=== PATIENT | female | born 1950 | race Caucasian/White ===

== ENCOUNTER → 2020-08-26 09:45 | Outpatient (BNVA) | payer MEDICARE, OTHER, SELFPAY | PROVIDERS: Family Provider Nurse Practitioner; PCP Nurse Practitioner; Visit Provider Nurse Practitioner | DX: Z00.00 Encounter for general adult medical examination without abnormal findings (principal); E04.9 Nontoxic goiter, unspecified; Z13.6 Encounter for screening for cardiovascular disorders; Z78.0 Asymptomatic menopausal state | CPT/HCPCS: 80053; 80061; 84443; 85025 ==

== ENCOUNTER 2020-10-28 10:46 | Outpatient (CLI) | payer MEDICARE, OTHER, SELFPAY ==
--- NOTE | 2020-10-28 11:00 | US_ITS ---
WS: [id number] ULTRASOUND THYROID TECHNIQUE: Ultrasound of the thyroid. CLINICAL INFORMATION: E04.9 - Nontoxic goiter, unspecified COMPARISON: None. FINDINGS: Thyroid: Right and left thyroid lobes are normal in size with slightly heterogeneous echotexture. Sma ll complex and cystic bilateral thyroid nodules Right thyroid lobe: 4.7 cm x 1.0 cm x 1.4 cm Left thyroid lobe: 3.3 cm x 1.3 cm x 1.1 cm. Isthmus: 0.2 mm. Cervical lymphadenopathy: None. US/US thyroid [id number] IMPRESSION: 1. Bilateral complex thyroid nodules the largest in the right measuring 1.1 x 0.8 x 0.5 cm 2. Largest nodule in the left is cystic measuring 0.7 x 0.3 x 0.9 cm 3. Recommend 12 month follow-up.
== END 2020-10-28 10:47 | disposition home or self-care (01) ==
LOC: US 10:48
PROVIDERS: PCP Nurse Practitioner; Visit Provider Nurse Practitioner
DX: E04.9 Nontoxic goiter, unspecified (principal); E04.2 Nontoxic multinodular goiter
CPT/HCPCS: 76536

== ENCOUNTER 2020-10-28 13:14 | Outpatient (CLI) | payer MEDICARE, OTHER, SELFPAY ==
--- NOTE | 2020-10-28 13:30 | MM_ITS ---
WS: [id number] BILATERAL DIGITAL SCREENING MAMMOGRAPHY WITH CAD CLINICAL INFORMATION: Z12.39 - Encounter for other screening for malignant neoplasm of breast HISTORY: Screening mammogram. No current complaints. COMPARISON: TECHNIQUE: Bilateral CC and MLO views. FINDINGS: The breasts are composed of heterogeneous fibroglandular density tissue, which can limit the detectio n of small underlying mass lesions. No suspicious mass, asymmetry, calcifications, or architectural d istortion. No evidence of malignancy. MM/[place] [id number] IMPRESSION: BI-RADS: 1-Negative FOLLOW UP: 1 Year Follow-up Recommend return to annual screening mammography.
--- NOTE | 2020-10-28 13:56 | XR_ITS ---
WS: [id number] DEXA (DUAL ENERGY X-RAY ABSORPTIOMETRY) Bone mineral density was performed using a [employer] machine. HISTORY: Z78.0 - Asymptomatic menopausal state COMPARISON: None available. Lumbar spine BMD (L1-L4): 1.188 g/cm2 T score: 0.1 Z score: 1.8 Total hip BMD: Left: 0.929 g/cm2. T score: -0.6 Z score: 0.9 Right: 0.894 g/cm2. T score: -0.9 Z score: 0.6 10 year probability of a major osteoporotic fracture is 8%. Moderate LEFT convex curvature lumbar spine. XR/XR DEXA axial skeleton* [id number] IMPRESSION: NORMAL BONE MINERAL DENSITY based upon the WHO classification for females.
== END 2020-10-28 13:15 | disposition home or self-care (01) ==
PROVIDERS: PCP Nurse Practitioner; Visit Provider Nurse Practitioner
DX: Z12.31 Encounter for screening mammogram for malignant neoplasm of breast (principal); Z78.0 Asymptomatic menopausal state
CPT/HCPCS: 77067; 77080

== ENCOUNTER → 2020-11-11 14:15 | Outpatient (BNVA) | payer MEDICARE, OTHER, SELFPAY | PROVIDERS: PCP Nurse Practitioner; Visit Provider Nurse Practitioner | DX: D64.9 Anemia, unspecified (principal); E04.1 Nontoxic single thyroid nodule | CPT/HCPCS: 82607; 82746; 83550; 84443; 85025 ==

== ENCOUNTER 2020-11-19 09:33 | Outpatient (CLI) | payer MEDICARE, OTHER, SELFPAY ==
[2020-11-19 10:07] LABS: Basophils % 0.6 %; Eosinophils % 1.1 %; Hematocrit 37.9 % (37.0-47.0); Hemoglobin 12.3 g/dL (11.5-15.3); Lymphocytes # 0.7 10^3/uL (0.8-4.8); Lymphocytes % 20.1 %; Mean Corpuscular HGB Conc 32.5 g/dL (30.0-36.0); Mean Corpuscular Hemoglobin 29.9 pg (28.0-34.0); Mean Platelet Volume 10.5 fL (7.4-10.4); Monocytes # 0.4 10^3/uL (0.2-0.9); Monocytes % 12.2 %; Neutrophils % 65.2 %; Nucleated Red Blood Cells % 0 %; Platelet Count 91 10^3/cmm (130-400); Red Blood Count 4.12 10^6/uL (4.1-5.3); Red Cell Distribution Width 14.7 % (12.1-15.1); White Blood Count 3.5 10^3/uL (4.0-10.0)
[2020-11-19 11:36] LABS: LAB Peripheral Smear Sent for Review
--- NOTE | 2020-11-19 12:01 | ONC CON_ITS ---
Dr. Pierre New Patient Note Patient: Brandi Castillo Unit #: [id number]: 1950 Dicatated By: Dahlia Pierre M.D.Date of Visit: Nov 19, 2020 Onc MED New Patient/Consult Referring Physician: Gurjit Courtney History of Present Illness: Ms. Brandi Castillo, is a 70-year-old female with no significant past medical history, during her routine follow-up/lab work-up found to have mild leukopenia and thrombocytopenia lab work-up done on November 11, 2020 showed white blood count 3.5 hemoglobin 11.2 hematocrit 34.7 MCV 92.5 platelets 79,000 with normal differential. Anemia work-up done on same day showed iron 74, iron saturation 26.7 TIBC 277, B12 460, TSH 2.26 Patient denies any night sweats, denies any recurrent fever, denies any weight loss, denies any peripheral lymphadenopathy, denies any abdominal fullness patient denies any history of blood disorder in the past patient denies any nsve-him-mjsupst herbs intake patient denies any alcohol use, denies smoking Past Medical History: Ms. Castillo's medical history consists of Migraine headaches and thyroid nodule. Past Surgical History: Ms. Castillo's surgical history is unremarkable. Medications: Cholecalciferol 1 Capsule (of 125 mcg ) Oral daily, EQ Migraine Relief Tablet Oral PRN, Magnesium 1 Tablet (of 400 mg) Oral daily Allergies: Nitrofurantoin Macrocrystal and Penicillins. Social History: Ms. Castillo is . Ms. Castillo has never smoked. She has no history of drinking. Family History: There is no documented family history. Review Of Symptoms: Constitutional - Appetite is good and weight is stable. No fever, night sweats, or hot flashes. Energy level is good, ENMT - No sinus congestion/drainage. No mouth sores. No sore throat or difficulty swallowing, Hematologic/Lymphatic - No abnormal bruising or bleeding, Respiratory - No shortness of breath. No cough. No pleuritic pain or hemoptysis, Cardiovascular - No angina pain. No palpitations, Gastrointestinal - No nausea or vomiting. No heartburn or acid reflux. No diarrhea or constipation. No blood in the stool or black stools, Genitourinary (F) - No dysuria or hematuria. No urinary frequency. No urgency or incontinence, Musculoskeletal - No joint or bone pain, Neurologic - No headache or dizziness. No numbness or tingling. No other focal neurologic symptoms, Psychiatric - No anxiety or depression. No insomnia. Vital Signs: Performed on Nov 19, 2020 11:05: 0, 21.53, 1.76 sq.m, 68 in, 99 %, 78 /min, 16 /min, 149/92 mm(hg) (HIGH), 96.1 F (LOW), and 141.6 lbs (HIGH). Performance Status: 0 - Fully active, able to carry on all predisease activities without restrictions. (ECOG) Physical Examination: ENMT - No mouth sores, no thrush, no jaundice, No peripheral lymphadenopathy, Respiratory - Lungs are clear to auscultation, Cardiovascular - Regular rate and rhythm of heart, Abdomen - Soft, bowel sounds present, Extremities - No visible edema or rash. Lab/Imaging: Most recent lab results are not available for this patient. Impression: Pancytopenia, etiology unclear, could be multifactorial including but not limited to nutritional like combined iron and B12 deficiency or considering her age underlying myelodysplasia cannot be ruled out or myeloproliferative disorder. Or immune related or subclinical infection specially viral. History of thyroid nodule History of migraine without aura Plan: Discussed with patient regarding her labs white blood count 3.5 hemoglobin 12.3 hematocrit 37.9 platelets 91,000 MCV 92 with normal differential Clinically, patient denies any signs symptoms suggestive of recent infection or underlying malignancy, etiology of her mild leukopenia and mild/moderate thrombocytopenia could be due to nutritional/mineral deficiency, her lab work-up done in PMDs office showed iron studies on the lower side of normal and B12 in normal range, could be functional deficiency., Considering her age underlying myelodysplasia cannot be ruled out or subclinical infections especially viral. Today's lab showed resolution of anemia but persistent mild leukopenia and mild/moderate thrombocytopenia but her platelet count has improved to 91,000 compared to 79,000 on November 11, 2020 At this point, we will review peripheral blood smear to rule out any platelet clumping or any abnormal cell and patient was advised to try qeha-seh-alqqlhk multivitamin once a day for 1 month and then she will return to clinic in 1 month with CBC with differential if there is no improvement in her blood counts or worsening, will consider abdominal sonogram to rule out splenomegaly, if normal, consider flow cytometry or bone marrow evaluation to rule out underlying myelodysplasia. Patient agreed with the plan and she will return to clinic in 1 month with CBC. Patient has a cousin brother who is a retired physician and she is in consult with him regarding her management. Signed By: Dahlia Pierre M.D. <<Signature on File>>
[2020-12-25 13:42] LABS: Miscellaneous Test See Scanned Lab Rpt
== END 2020-11-19 09:34 | disposition home or self-care (01) ==
PROVIDERS: PCP Nurse Practitioner; Visit Provider Internal Medicine Hematology & Oncology
DX: D61.818 Other pancytopenia (principal); D50.9 Iron deficiency anemia, unspecified; D51.9 Vitamin B12 deficiency anemia, unspecified; E04.1 Nontoxic single thyroid nodule; G43.919 Migraine, unspecified, intractable, without status migrainosus; Z79.899 Other long term (current) drug therapy
CPT/HCPCS: 36415; 80500; 85025; 88184; 88185; 99204

== ENCOUNTER → 2020-12-16 09:06 | Outpatient (BNVA) | payer MEDICARE, OTHER, SELFPAY | PROVIDERS: PCP Nurse Practitioner; Visit Provider Internal Medicine Hematology & Oncology | DX: D61.818 Other pancytopenia (principal); E04.1 Nontoxic single thyroid nodule | CPT/HCPCS: 85025 ==

== ENCOUNTER 2020-12-18 10:16 | Outpatient (CLI) | payer MEDICARE, OTHER, SELFPAY ==
--- NOTE | 2020-12-18 13:09 | ONC FU_ITS ---
Dr. Pierre follow up note Patient: Brandi Castillo Unit #: [id number]: 1950 Dicatated By: Dahlia Pierre M.D.Date of Visit:Dec 18, 2020 Onc Med Follow-up/Prog Note History of Present Illness: Ms. Brandi Castillo, is a 70-year-old female with no significant past medical history, during her routine follow-up/lab work-up found to have mild leukopenia and thrombocytopenia lab work-up done on November 11, 2020 showed white blood count 3.5 hemoglobin 11.2 hematocrit 34.7 MCV 92.5 platelets 79,000 with normal differential. Anemia work-up done on same day showed iron 74, iron saturation 26.7 TIBC 277, B12 460, TSH 2.26 Patient denies any night sweats, denies any recurrent fever, denies any weight loss, denies any peripheral lymphadenopathy, denies any abdominal fullness patient denies any history of blood disorder in the past patient denies any tlac-ypp-jwapohj herbs intake patient denies any alcohol use, denies smoking Came for follow-up, denies any specific complaints, no fever chills, no nausea or vomiting no diarrhea or constipation, no melena or hematochezia, no hemoptysis or hematemesis, no nosebleed or gum bleed, no recurrent fever, no dysuria, no sinus problem., Taking irhu-icp-ylttmgd multivitamin, tolerating well Medications: Cholecalciferol 1 Capsule (of 125 mcg ) Oral daily, EQ Migraine Relief Tablet Oral PRN, Magnesium 1 Tablet (of 400 mg) Oral daily Allergies: Nitrofurantoin Macrocrystal and Penicillins. Review of Systems: Review of Systems is not available for this patient. Vital Signs: Performed on Dec 18, 2020 10:56 Height - 68.00 in Weight - 141.8 lbs (HIGH) BSA - 1.77 sq.m BMI - 21.56 Temperature - 97.2 F (LOW) Pulse - 80 /min Respiration - 17 /min BP - 132/86 mm(hg) O2 Sat - 97 % Pain - 0 Performance Status: 0 - Fully active, able to carry on all predisease activities without restrictions. (ECOG) Physical Examination: ENMT - No mouth sores, no thrush, no jaundice, no cervical lymphadenopathy, Respiratory - Lungs are clear to auscultation, Cardiovascular - Regular rate and rhythm of heart, Abdomen - Soft, bowel sounds present, Extremities - No visible edema. Lab/Imaging: Test performed on Dec 16, 2020 09:06 WBC 3.2 10^9/L RBC 3.82 10^12/L HGB 11.6 g/dL HCT 35.7 % MCV 93.5 fl MCH 30.4 pg MCHC 32.5 g/dL RDW 15.0 % Platelet Count 86 10^9/L MPV 10.9 fL Neutrophils (Gran) 1.92 10^9/L Lymphocytes 0.6 10^9/L Monocytes 0.5 10^9/L Eosinophils 0.1 10^9/L Basophils 0.0 10^9/L Manual Lymphocytes 19.8 % Manual Monocytes 16.7 % Manual Eosinophils 1.6 % Manual Basophils 0.9 % Test performed on Nov 19, 2020 09:55 Neutrophil % 65.2 % Lymphocyte % 20.1 % Monocyte % 12.2 % Eosinophil % 1.1 % Basophils % 0.6 % NRBC % 0 % Impression: Pancytopenia, etiology unclear, could be multifactorial including but not limited to nutritional like combined iron and B12 deficiency or considering her age underlying myelodysplasia cannot be ruled out or myeloproliferative disorder. Or immune related or subclinical infection specially viral. History of thyroid nodule History of migraine without aura Plan: With patient regarding her labs white blood count 3.2 hemoglobin 11.6 hematocrit 35.7 platelets 86,000 with monocytes 16.7% which is elevated Clinically, patient doing reasonably well with no new signs symptoms, follow-up CBC shows persistent pancytopenia, no improvement with multivitamin supplement, at this point will consider abdominal sonogram to check spleen size and also consider flow cytometry to rule out underlying myeloproliferative disorder Return to clinic in 1 month with CBC, If above-mentioned work-up is unremarkable and she has persistent pancytopenia, will consider bone marrow evaluation to rule out underlying myelodysplasia Signed By: Dahlia Pierre M.D. <<Signature on File>>
== END 2020-12-18 10:17 | disposition home or self-care (01) ==
PROVIDERS: PCP Nurse Practitioner; Visit Provider Internal Medicine Hematology & Oncology
DX: D61.818 Other pancytopenia (principal); D51.9 Vitamin B12 deficiency anemia, unspecified; D50.9 Iron deficiency anemia, unspecified; E04.1 Nontoxic single thyroid nodule; G43.919 Migraine, unspecified, intractable, without status migrainosus; Z79.899 Other long term (current) drug therapy
CPT/HCPCS: 36415; 99214

== ENCOUNTER 2021-01-13 08:29 | Outpatient (CLI) | payer MEDICARE, OTHER, SELFPAY ==
--- NOTE | 2021-01-13 08:33 | US_ITS ---
WS: [id number] Limited abdomen ultrasound. HISTORY: Evaluate spleen only. Mild leukopenia and abdominal pain with thrombocytopenia. COMPARISON: No similar studies. Spleen measures 9.5 cm in length by 4.1 cm. Normal size spleen with several granulomatous. Normal con tour of the hilum. LEFT kidney is also visualized and normal with no hydronephrosis or mass. No adjac ent ascites. US/US abdomen limited [id number] IMPRESSION: Normal size spleen with granulomatous.
== END 2021-01-13 08:30 | disposition home or self-care (01) ==
LOC: US 08:30
PROVIDERS: PCP Nurse Practitioner; Visit Provider Internal Medicine Hematology & Oncology
DX: R10.9 Unspecified abdominal pain (principal); D72.819 Decreased white blood cell count, unspecified; D69.6 Thrombocytopenia, unspecified
CPT/HCPCS: 76705

== ENCOUNTER → 2021-01-17 09:33 | Outpatient (BNVA) | payer MEDICARE, OTHER, SELFPAY | PROVIDERS: PCP Nurse Practitioner; Visit Provider Internal Medicine Hematology & Oncology | DX: D69.6 Thrombocytopenia, unspecified (principal) | CPT/HCPCS: 85025 ==

== ENCOUNTER 2021-01-20 15:15 | Outpatient (CLI) | payer MEDICARE, OTHER, SELFPAY ==
--- NOTE | 2021-01-20 16:19 | ONC FU_ITS ---
Dr. Pierre follow up note Patient: Brandi Castillo Unit #: [id number]: 1950 Dicatated By: Dahlia Pierre M.D.Date of Visit:Jan 20, 2021 Onc Med Follow-up/Prog Note History of Present Illness: Ms. Brandi Castillo, is a 70-year-old female with no significant past medical history, during her routine follow-up/lab work-up found to have mild leukopenia and thrombocytopenia lab work-up done on November 11, 2020 showed white blood count 3.5 hemoglobin 11.2 hematocrit 34.7 MCV 92.5 platelets 79,000 with normal differential. Anemia work-up done on same day showed iron 74, iron saturation 26.7 TIBC 277, B12 460, TSH 2.26 Patient denies any night sweats, denies any recurrent fever, denies any weight loss, denies any peripheral lymphadenopathy, denies any abdominal fullness patient denies any history of blood disorder in the past patient denies any pdbg-yrc-yuishkl herbs intake patient denies any alcohol use, denies smoking Abdominal sonogram done on January 13, 2021 showed normal-sized spleen with granulomatous, and whole blood flow cytometry done on November 21, 2020 shows no aberrant myeloid or lymphoid population. Came for follow-up denies any specific complaints, no fever chills, no nausea or vomiting, no diarrhea or constipation, no melena or hematochezia, no peripheral lymphadenopathy, no abdominal fullness, no night sweats, no recurrent fever or weight loss Medications: Cholecalciferol 1 Capsule (of 125 mcg ) Oral daily, EQ Migraine Relief Tablet Oral PRN, Magnesium 1 Tablet (of 400 mg) Oral daily Allergies: Nitrofurantoin Macrocrystal and Penicillins. Review of Systems: Review of Systems is not available for this patient. Vital Signs: Performed on Jan 20, 2021 15:54 Height - 68.00 in Weight - 143.2 lbs (HIGH) BSA - 1.77 sq.m BMI - 21.77 Temperature - 98.6 F Pulse - 82 /min Respiration - 18 /min BP - 155/90 mm(hg) (HIGH) O2 Sat - 97 % Pain - 0 Fatigue - 0 Performance Status: 0 - Fully active, able to carry on all predisease activities without restrictions. (ECOG) Physical Examination: ENMT - no Mouth sores, no thrush, no jaundice no cervical lymphadenopathy, Respiratory - Lungs are clear to auscultation, Cardiovascular - Regular rate and rhythm of heart, Abdomen - Soft, bowel sounds present, Extremities - No visible edema or rash. Lab/Imaging: Test performed on Jan 17, 2021 09:33 WBC 3.3 10^3/uL RBC 3.72 10^6/uL HGB 11.3 g/dL HCT 34.8 % MCV 93.5 fl MCH 30.4 pg MCHC 32.5 g/dL RDW 14.8 % Platelet Count 86 10^3/uL MPV 11.9 fl Neutrophils 1.93 10^3/uL Lymphocytes 0.7 10^3/uL Monocytes 0.5 10^3/uL Eosinophils 0.0 10^3/uL Basophils 0.0 10^3/uL Neutrophil % 59.4 % Lymphocyte % 22.5 % Monocyte % 15.4 % Eosinophil % 0.9 % Basophils % 0.9 % NRBC 0.0 /100 WBC NRBC % 0 % Test performed on Dec 16, 2020 09:06 Manual Lymphocytes 19.8 % Manual Monocytes 16.7 % Manual Eosinophils 1.6 % Manual Basophils 0.9 % Impression: Pancytopenia, etiology unclear, could be multifactorial including but not limited to nutritional like combined iron and B12 deficiency or considering her age underlying myelodysplasia cannot be ruled out or myeloproliferative disorder. Or immune related or subclinical infection specially viral. Whole blood flow cytometry done on November 21, 2020 shows no aberrant myeloid or lymphoid population Abdominal sonogram done on January 13, 2021 shows normal-sized spleen with granulomatous History of thyroid nodule History of migraine without aura Plan: Discussed with patient regarding her labs white blood count 3.3 hemoglobin 11.3 hematocrit 34.8 platelets 86,000 with a normal differential and her abdominal sonogram report as well as whole blood flow cytometry report, clinically, patient is doing well with no new signs symptoms but her follow-up labs shows persistent pancytopenia, at this point, will recommend bone marrow evaluation to rule out underlying myelodysplasia but patient declined rather prefer observation and that with her PMD and would like to see us on as-needed basis. Well, in that case, at patient's request we will see her on as-needed basis Signed By: Dahlia Pierre M.D. <<Signature on File>>
== END 2021-01-20 15:16 | disposition home or self-care (01) ==
PROVIDERS: PCP Nurse Practitioner; Visit Provider Internal Medicine Hematology & Oncology
DX: D61.818 Other pancytopenia (principal); E04.1 Nontoxic single thyroid nodule; G43.919 Migraine, unspecified, intractable, without status migrainosus; Z79.899 Other long term (current) drug therapy
CPT/HCPCS: G0463

== ENCOUNTER → 2022-01-13 09:02 | Outpatient (BNVA) | payer MEDICARE, OTHER, SELFPAY | PROVIDERS: PCP Nurse Practitioner; Visit Provider Nurse Practitioner | DX: D69.6 Thrombocytopenia, unspecified (principal); E04.1 Nontoxic single thyroid nodule; Z13.6 Encounter for screening for cardiovascular disorders | CPT/HCPCS: 80053; 80061; 84443; 85025 ==

== ENCOUNTER → 2022-07-27 10:06 | Outpatient (BNVA) | payer MEDICARE, OTHER, SELFPAY | PROVIDERS: PCP Nurse Practitioner; Visit Provider Nurse Practitioner | DX: M54.9 Dorsalgia, unspecified (principal); D69.6 Thrombocytopenia, unspecified; E55.9 Vitamin D deficiency, unspecified; E04.1 Nontoxic single thyroid nodule; M41.9 Scoliosis, unspecified | CPT/HCPCS: 80053; 82306; 82607; 83540; 85025 ==

== ENCOUNTER → 2022-08-05 08:58 | Outpatient (BNVA) | payer MEDICARE, OTHER, SELFPAY | PROVIDERS: PCP Nurse Practitioner; Visit Provider Nurse Practitioner | DX: M47.894 Other spondylosis, thoracic region (principal); M47.896 Other spondylosis, lumbar region | CPT/HCPCS: 72040; 72072; 72100 ==

== ENCOUNTER → 2023-03-29 08:04 | Outpatient (BNVA) | payer MEDICARE, OTHER, SELFPAY | PROVIDERS: PCP Nurse Practitioner; Visit Provider Nurse Practitioner | DX: Z13.6 Encounter for screening for cardiovascular disorders (principal); E04.1 Nontoxic single thyroid nodule; E55.9 Vitamin D deficiency, unspecified; D69.6 Thrombocytopenia, unspecified | CPT/HCPCS: 80053; 80061; 84443; 85025 ==

== ENCOUNTER → 2023-04-29 09:32 | Outpatient (BNVA) | payer MEDICARE, OTHER, SELFPAY | PROVIDERS: PCP Nurse Practitioner; Visit Provider Nurse Practitioner | DX: D69.6 Thrombocytopenia, unspecified (principal) | CPT/HCPCS: 71046 ==

== ENCOUNTER 2023-05-14 09:16 | Outpatient (CLI) | payer MEDICARE, OTHER, SELFPAY ==
--- NOTE | 2023-05-14 09:29 | MM_ITS ---
WS: [id number] BILATERAL SCREENING DIGITAL TOMOSYNTHESIS MAMMOGRAM WITH CAD HISTORY: Z12.31 - Encounter for screening mammogram for malignant ... COMPARISON: 10/28/2020 and 03/10/2019 Bilateral CC and MLO views with tomosynthesis and synthetic mammography submitted. Computer aided det ection analyzed. Breast composition: There are scattered areas of fibroglandular density. No suspicious masses, microc alcifications or architectural distortion. MM/[place] [id number] IMPRESSION: BI-RADS: 1-Negative FOLLOW UP: 1 Year Follow-up
== END 2023-05-14 09:17 | disposition home or self-care (01) ==
LOC: RAD 09:18 → MOBLMAM 09:28
PROVIDERS: PCP Nurse Practitioner; Visit Provider Nurse Practitioner
DX: Z12.31 Encounter for screening mammogram for malignant neoplasm of breast (principal)
CPT/HCPCS: 77063; 77067

== ENCOUNTER 2023-06-15 14:02 | Oncology outpatient (recurring) (ONCR) | payer MEDICARE, OTHER, SELFPAY | END 2023-06-17 23:59 | disposition home or self-care (01) | LOC: ONCMED 14:03 | PROVIDERS: PCP Family Medicine; Visit Provider Internal Medicine Medical Oncology | DX: D46.9 Myelodysplastic syndrome, unspecified (principal); D61.818 Other pancytopenia; Z79.899 Other long term (current) drug therapy | CPT/HCPCS: 99203 ==

== ENCOUNTER → 2023-06-29 08:15 | Outpatient (BNVA) | payer MEDICARE, OTHER, SELFPAY | PROVIDERS: PCP Family Medicine; Visit Provider Dermatology | DX: Z01.89 Encounter for other specified special examinations (principal) ==

== ENCOUNTER 2023-07-13 13:30 | Oncology outpatient (recurring) (ONCR) | payer MEDICARE, OTHER, SELFPAY | END 2023-07-17 23:59 | disposition home or self-care (01) | PROVIDERS: PCP Family Medicine; Visit Provider Internal Medicine Medical Oncology | DX: D46.9 Myelodysplastic syndrome, unspecified (principal) | CPT/HCPCS: 36415; 82525; 82607; 82728; 82746; 83540; 83550; 84630; 85025; 99214 ==

== ENCOUNTER 2023-08-16 11:39 | Outpatient (CLI) | payer MEDICARE, OTHER, SELFPAY ==
--- NOTE | 2023-08-16 11:45 | ECG_ITS ---
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 Interpretive Statements NAME OF STUDY: TREADMILL STRESS TEST INDICATION: Atypical Chest Pain Baseline blood pressure of 133/84 mm Hg, heart rate [71] beats per minute and oxygen saturation of 97%. EKG showed Sinus rhythm, normal axis with isolated PVCs. Incomplete right bundle branch block. ??? The patient exercised for [5 minutes and 4 seconds] on a [standard Adi protocol]. Patient attained a maximum heart rate of [140] beats per minute( [95] % of the maximum predicted heart rate) with a blood pressure at the peak exercise of [173/104]mm Hg And oxygen saturation of 92%. The EKG at the peak exercise revealed [Sinus tachycardia with no significant ST-T wave changes]. Patient did [not have any chest pain or any significant arrhythmis with the exercise.]??? During the recovery phase, there were no new changes. Frequent isolated PVCs noted in recovery. ??? Blood pressure at the end of the recovery phase was 129/89 mm Hg with a heart rate of 74 beats per minute and oxygen saturation of 95%. ??? CONCLUSION: 1. Normal EKG response to treadmill exercise. 2. No exercise-induced chest pain. 3. Fair exercise tolerance, attained a maximum of 7 METs. 4. Baseline normal blood pressure with normal response to exercise. 5 Frequent isolated PVCs noted during the procedure. Electronically Signed On 08-17-2023 12:35:14 CDT by Sheri Jorge M.D. [id number]
[2023-08-16 12:17] VITALS: BP 129/89; PULSE 74
== END 2023-08-16 11:40 | disposition home or self-care (01) ==
LOC: CDL 11:40
PROVIDERS: PCP Family Medicine; Visit Provider Family Medicine
DX: R07.89 Other chest pain (principal); I49.3 Ventricular premature depolarization
CPT/HCPCS: 93017

== ENCOUNTER → 2023-08-17 11:12 | Outpatient (BNVA) | payer MEDICARE, OTHER, SELFPAY | PROVIDERS: PCP Family Medicine; Visit Provider Internal Medicine Cardiovascular Disease | DX: I49.3 Ventricular premature depolarization (principal); R07.9 Chest pain, unspecified; I44.0 Atrioventricular block, first degree; I49.8 Other specified cardiac arrhythmias | CPT/HCPCS: 1008F; 1126F; 1160F; 3077F; 3080F; 93246; 99204 ==

== ENCOUNTER 2023-08-30 10:41 | Oncology outpatient (recurring) (ONCR) | payer MEDICARE, OTHER, SELFPAY ==
[2023-09-14 17:24] LABS: Miscellaneous Test SEE COMMENTS
== END 2023-09-16 23:59 | disposition home or self-care (01) ==
PROVIDERS: Nurse Practitioner Family; PCP Family Medicine; Visit Provider Internal Medicine Medical Oncology
DX: D46.9 Myelodysplastic syndrome, unspecified (principal); D69.6 Thrombocytopenia, unspecified; E60 Dietary zinc deficiency; Z79.899 Other long term (current) drug therapy
CPT/HCPCS: 36415; 99215

== ENCOUNTER → 2023-08-31 08:16 | Outpatient (BNVA) | payer MEDICARE, SELFPAY | PROVIDERS: PCP Family Medicine; Visit Provider Internal Medicine | DX: D46.9 Myelodysplastic syndrome, unspecified (principal) | CPT/HCPCS: 80053; 83615; 85025; 85045 ==

== ENCOUNTER 2023-09-01 09:42 | Outpatient (CLI) | payer MEDICARE, OTHER, SELFPAY ==
--- NOTE | 2023-09-01 10:00 | USCV_ITS ---
Brandi Castillo Age: 73 Gender: F : 1950 Exam Date: 09/01/2023 09:54 Ordering Phys: Sheri Jorge MD ([email or web address]) Technologist: Alexsandra Ledbetter Exam Location: [facility] [place] Indication: chest pain with frequent pvc BP: 124 / 77 HR: 69 Rhythm: Sinus Technical Quality: Adequate MEASUREMENTS (Male / Female) Normal Values 2D ECHO LV Diastolic Diameter PLAX 4.5 cm 4.2 - 5.9 / 3.9 - 5.3 cm LV Systolic Diameter PLAX 3.5 cm LV Chamber Size 5.3 cm IVS Diastolic Thickness 0.7 cm 0.6 - 1.0 / 0.6 - 0.9 cm IVS Systolic Thickness 0.9 cm LVPW Diastolic Thickness 1.0 cm 0.6 - 1.0 / 0.6 - 0.9 cm LVPW Systolic Thickness 1.4 cm RV Chamber Size 3.3 cm LVOT Diameter 2.0 cm LV Ejection Fraction 2D Teich 46.7 % LV Ejection Fraction MOD 2C 72.0 % LV Ejection Fraction 2C AL 71.6 % LA Diameter 2.4 cm LA Width 3.6 cm LA Height 1.9 cm RA Width 4.6 cm RA Height 2.0 cm Aorta at Sinotubular Diameter 3.5 cm IVC Diameter 1.1 cm M-MODE Aortic Annulus Diameter 3.8 cm LA Ao Ratio MM 0.6 MV E Point Septal Separation 0.5 cm DOPPLER AV Peak Velocity 175.7 cm/s LVOT Peak Velocity 111.7 cm/s AV Area Cont Eq vti 1.9 cm squared AV Area Cont Eq pk 2.0 cm squared MV Area PHT 3.1 cm squared Mitral E to A Ratio 1.0 MV E' Velocity 43.0 cm/s Mitral E to MV E' Ratio 10.4 Mitral E to LV E' Lateral Ratio 12.7 Mitral E to LV E' Septal Ratio 8.9 TR Peak Velocity 239.4 cm/s TR Peak Gradient 22.9 mmHg TR Mean Velocity 180.3 cm/s TR Mean Gradient 14.2 mmHg TR Velocity Time Integral 66.1 cm TV Peak E Velocity 70.0 cm/s Right Atrial Pressure 3.0 mmHg Pulmonary Artery Systolic Pressu 25.9 mmHg RV Acceleration Time 0.1 s RV Ejection Time 0.3 s RV AcT/ET 0.3 FINDINGS Left Ventricle Normal left ventricular size, systolic function and wall thickness, with no regional wall motion abnormalities. Left ventricular ejection fraction is estimated at 60-65 %. Normal diastolic function. Right Ventricle Normal right ventricular size and systolic function. Right ventricular systolic pressure 25.9 mmHg. Right Atrium Normal right atrial size. Left Atrium Normal left atrial size. Mitral Valve Structurally normal mitral valve. No mitral valve stenosis. Trace mitral valve regurgitation. Aortic Valve Structurally normal trileaflet aortic valve. No aortic valve stenosis. Moderate aortic valve regurgitation. Tricuspid Valve Structurally normal tricuspid valve. Trace to mild tricuspid valve regurgitation. Pulmonic Valve Pulmonic valve not well visualized. Pericardium No pericardial effusion. Aorta Normal size aortic root and dilated proximal ascending aorta measured at 39 mm. IVC Normal IVC dimension with <50% respiratory change of the inferior vena cava. CONCLUSIONS 1. Normal left ventricular size, systolic function and wall thickness, with no regional wall motion abnormalities. Left ventricular ejection fraction is estimated at 60-65 %. Normal diastolic function. 2. Moderate aortic valve regurgitation. 3. Dilated proximal ascending aorta measured at 39 mm. 4. No prior similar studies to compare. Sheri Jorge MD (Electronically Signed) Final Date: 01 September 2023 17:36 S
== END 2023-09-01 09:43 | disposition home or self-care (01) ==
LOC: RAD 09:43
PROVIDERS: PCP Family Medicine; Visit Provider Internal Medicine Cardiovascular Disease
DX: I49.3 Ventricular premature depolarization (principal); I35.1 Nonrheumatic aortic (valve) insufficiency; R07.9 Chest pain, unspecified
CPT/HCPCS: 93306

== ENCOUNTER → 2023-09-20 09:47 | Outpatient (BNVA) | payer MEDICARE, OTHER, SELFPAY | PROVIDERS: PCP Family Medicine; Visit Provider Nurse Practitioner Family | DX: R07.89 Other chest pain (principal) | CPT/HCPCS: 99213 ==

== ENCOUNTER → 2023-09-27 08:37 | Outpatient (BNVA) | payer MEDICARE, SELFPAY | PROVIDERS: PCP Family Medicine; Visit Provider Internal Medicine | DX: D46.9 Myelodysplastic syndrome, unspecified (principal); D69.6 Thrombocytopenia, unspecified; E60 Dietary zinc deficiency | CPT/HCPCS: 80053; 83615; 85025; 85045 ==

== ENCOUNTER → 2023-10-25 08:39 | Outpatient (BNVA) | payer MEDICARE, SELFPAY | PROVIDERS: PCP Family Medicine; Visit Provider Internal Medicine Medical Oncology | DX: D46.9 Myelodysplastic syndrome, unspecified (principal); D69.6 Thrombocytopenia, unspecified; E04.1 Nontoxic single thyroid nodule | CPT/HCPCS: 80053; 83615; 85025; 85045 ==

== ENCOUNTER → 2023-11-30 08:29 | Outpatient (BNVA) | payer MEDICARE, SELFPAY | PROVIDERS: PCP Family Medicine; Visit Provider Internal Medicine Medical Oncology | DX: D46.9 Myelodysplastic syndrome, unspecified (principal); D69.6 Thrombocytopenia, unspecified | CPT/HCPCS: 80053; 83615; 85025; 85045 ==

== ENCOUNTER 2023-12-02 13:25 | Oncology outpatient (recurring) (ONCR) | payer MEDICARE, OTHER, SELFPAY | END 2023-12-16 23:59 | disposition home or self-care (01) | PROVIDERS: PCP Family Medicine; Visit Provider Internal Medicine Medical Oncology | DX: D46.9 Myelodysplastic syndrome, unspecified (principal) | CPT/HCPCS: 99214 ==

== ENCOUNTER 2024-04-11 08:20 | Outpatient (CLI) | payer MEDICARE, OTHER, SELFPAY ==
--- NOTE | 2024-04-11 08:25 | CTR_ITS ---
PROCEDURE INFORMATION: Exam: CT Chest With Contrast; Diagnostic Exam date and time: 04/11/2024 9:33 AM Age: 74 years old Clinical indication: Pain; Angina pectoris; Additional info: Myelodysplastic syndrome/other chest pain TECHNIQUE: Imaging protocol: Diagnostic computed tomography of the chest with contrast. Total images: 3 Radiation optimization: All CT scans at this facility use at least one of these dose optimization techniques: automated exposure control; mA and/or kV adjustment per patient size (includes targeted exams where dose is matched to clinical indication); or iterative reconstruction. Contrast material: OMNI 350; Contrast volume: 100 ml; Contrast route: INTRAVENOUS (IV); COMPARISON: CR XR chest 2V* [id number] 04/29/2023 9:31 AM RADIATION DOSE METRICS: Total DLP (mGy-cm): 227.89 FINDINGS: Lungs: Trace bibasilar atelectasis or scar. Pleural spaces: Unremarkable. No pneumothorax. No pleural effusion. Heart: Unremarkable. No cardiomegaly. No pericardial effusion. Lymph nodes: Unremarkable. No enlarged lymph nodes. Vasculature: Dilated ascending thoracic aorta measured at 4.5 cm. Proximal descending thoracic aorta measures 3.6 cm in diameter. Liver: 2.1 cm largest cyst noted in a liver that has multiple simple liver cysts. No further evaluation required. Bones/joints: Blakely right thoracic spinal scoliosis. Thoracolumbar scoliosis convexed to the left. Soft tissues: Unremarkable. Other findings: Moderate atherosclerotic disease burden is evident. CT/CT chest w con* [id number] IMPRESSION: 1. Dilated ascending thoracic aorta measured at 4.5 cm. Proximal descending thoracic aorta measures 3.6 cm in diameter. 2. Trace bibasilar atelectasis or scar.
[2024-04-11 09:26] LABS: Blood Urea Nitrogen 11 mg/dL (8-23)
[2024-04-11] MEDS: iohexol 350 mg/mL 500 mL Btl (per mL) IV (09:40)
== END 2024-04-11 08:21 | disposition home or self-care (01) ==
LOC: RAD 08:20
PROVIDERS: Radiology Neuroradiology; PCP Family Medicine; Visit Provider Internal Medicine Medical Oncology
DX: D46.9 Myelodysplastic syndrome, unspecified (principal); R07.89 Other chest pain; M41.9 Scoliosis, unspecified; K76.89 Other specified diseases of liver
CPT/HCPCS: 71260; 82565; 84520; Q9967

== ENCOUNTER 2024-05-30 13:55 | Outpatient (CLI) | payer MEDICARE, OTHER, SELFPAY ==
--- NOTE | 2024-05-30 14:00 | MM_ITS ---
WS: [id number] BILATERAL 3D TOMOSYNTHESIS DIGITAL SCREENING MAMMOGRAPHY WITH CAD CLINICAL INFORMATION: SCREENING HISTORY: Screening mammogram. No current complaints. COMPARISON: 2022 TECHNIQUE: Bilateral CC and MLO views. FINDINGS: The breasts are composed of heterogeneous fibroglandular density tissue, which can limit the detectio n of small underlying mass lesions. No suspicious mass, asymmetry, calcifications, or architectural d istortion. No evidence of malignancy. MM/[place] [id number] IMPRESSION: BI-RADS: 1-Negative FOLLOW UP: 1 Year Follow-up Recommend return to annual screening mammography.
== END 2024-05-30 13:56 | disposition home or self-care (01) ==
LOC: MOBLMAM 14:00
PROVIDERS: PCP Family Medicine; Visit Provider Family Medicine
DX: Z12.31 Encounter for screening mammogram for malignant neoplasm of breast (principal); R92.333 Mammographic heterogeneous density, bilateral breasts
CPT/HCPCS: 77063; 77067

== ENCOUNTER 2024-09-07 10:56 | Outpatient (CLI) | payer MEDICARE, OTHER, SELFPAY ==
--- NOTE | 2024-09-07 10:59 | USCV_ITS ---
Brandi Castillo Age: 74 Gender: F : 1950 Exam Date: 09/07/2024 11:20 Ordering Phys: Rafiq Rincon MD Technologist: KAR Exam Location: [facility] [place] Indication: RECHECK OF AR/ BP: / HR: 60 Rhythm: Sinus Technical Quality: Adequate MEASUREMENTS (Male / Female) Normal Values 2D ECHO LV Diastolic Diameter PLAX 4.6 cm 4.2 - 5.9 / 3.9 - 5.3 cm IVS Diastolic Thickness 1.1 cm 0.6 - 1.0 / 0.6 - 0.9 cm IVS Systolic Thickness 1.2 cm LVPW Diastolic Thickness 1.0 cm 0.6 - 1.0 / 0.6 - 0.9 cm LVPW Systolic Thickness 1.6 cm LVOT Diameter 2.0 cm LV Ejection Fraction 2D Teich 73.1 % LV Ejection Fraction MOD 4C 29.0 % LV Ejection Fraction MOD 2C 65.1 % LV Ejection Fraction 2C AL 65.2 % LA Diameter 2.4 cm RA Systolic Volume 4C AL 22.5 ml RA Systolic Volume 4C MOD 21.5 ml LA Sys Volume AL 17.2 cm cubed LA Sys Volume Index AL 10.0 cm cubed/m squared Aorta at Sinotubular Diameter 3.7 cm IVC Diameter 1.3 cm M-MODE LA Ao Ratio MM 0.8 AV Cusp Separation MM 1.9 cm DOPPLER AV Peak Velocity 352.3 cm/s LVOT Peak Velocity 125.0 cm/s AV Area Cont Eq vti 2.3 cm squared AV Area Cont Eq pk 1.1 cm squared MV Area PHT 4.1 cm squared Mitral E to A Ratio 0.8 TV Peak Velocity 210.7 cm/s TR Peak Velocity 214.0 cm/s TR Peak Gradient 18.3 mmHg TR Mean Velocity 175.0 cm/s TR Mean Gradient 12.9 mmHg TR Velocity Time Integral 64.2 cm TV Peak E Velocity 64.0 cm/s Right Atrial Pressure 3.0 mmHg Pulmonary Artery Systolic Pressu 21.3 mmHg PV Peak Velocity 90.0 cm/s FINDINGS Left Ventricle Left ventricle is normal in size. LV systolic function is normal with EF of 55 to 60%. No regional wall motion abnormalities are seen. Grade 1 diastolic dysfunction. Right Ventricle Normal in size and function Right Atrium Normal in size Left Atrium Normal in size Mitral Valve Structurally normal mitral valve. Mild mitral regurgitation Aortic Valve Structurally normal aortic valve. Mild to moderate aortic regurgitation. No significant stenosis. Tricuspid Valve Mild tricuspid regurgitation. Pulmonary artery systolic pressure is normal. Pulmonic Valve Not well-visualized. Pericardium Normal Aorta Ascending aorta is dilated with diameter of 4 cm. IVC Not well visualized. CONCLUSIONS LV systolic function is normal with EF of 55-60% Grade 1 diastolic dysfunction Mild mitral regurgitation Mild to moderate aortic regurgitation Mild tricuspid regurgitation Ascending aorta is dilated with diameter of 4 cm. Compared to prior echocardiogram from 2022, no significant changes are seen. Shahriar Tao MD (Electronically Signed) Final Date: 10 September 2024 13:37 S
== END 2024-09-07 10:57 | disposition home or self-care (01) ==
LOC: RAD 10:57
PROVIDERS: PCP Family Medicine; Visit Provider Family Medicine
DX: I35.0 Nonrheumatic aortic (valve) stenosis (principal); I50.30 Unspecified diastolic (congestive) heart failure; I71.21 Aneurysm of the ascending aorta, without rupture
CPT/HCPCS: 93306

== ENCOUNTER → 2024-10-09 13:29 | Outpatient (BNVA) | payer MEDICARE, OTHER, SELFPAY | PROVIDERS: PCP Family Medicine; Visit Provider Clinical Nurse Specialist Adult Health | DX: R05.9 Cough, unspecified (principal); J06.9 Acute upper respiratory infection, unspecified | CPT/HCPCS: 87426 ==

== ENCOUNTER 2024-12-18 09:23 | Outpatient (CLI) | payer MEDICARE, OTHER, SELFPAY ==
--- NOTE | 2024-12-18 09:52 | ECG_ITS ---
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 The perfusion scan will be documented separately. DATA: Baseline heart rate was 64 beats per minute. Baseline blood pressure was 169/85 millimeters of mercury. Target heart rate was 146. Maximum heart rate achieved was 108. which was 73% of the predicted target heart rate. Maximum blood pressure was 170/90 millimeters of mercury. The reason for ending the test was completion of the protocol. The patient did not experience any symptoms. ELECTROCARDIOGRAM: BASELINE: Sinus rhythm. Normal axis. Otherwise, no ST-T changes suggestive of ischemia noted. No arrhythmia noted. EXERCISE: After Lexiscan injection, no ST-T changes suggestive of ischemic noted. No arrhythmia noted. CONCLUSION: Please note due to baseline abnormality of the EKG specificity and sensitivity of the EKG portion of LexiScan MIBI stress test will be low 1. EKG not suggestive of ischemia 2. Lexiscan injection unremarkable. 3. Perfusion scan will be documented separately. Electronically Signed On 12-26-2024 17:43:39 CDT by LORNA ALMANZA [email or web address]
--- NOTE | 2024-12-18 09:52 | NMCV_ITS ---
NM caro perf SPECT r/s* [id number] Brandi Castillo Age: 74 Gender: F : 1950 Exam Date: 12/18/2024 10:32 Ordering Phys: Dorys Ortega MD Technologist: ENE Florian Exam Location: [facility] Indications: cp STRESS TEST Please see separate stress test report in [facility] for full findings IMAGE PROTOCOL Rest/Stress 1 Lexiscan Day Radiopharmaceutical Dose (mCi) Administration Site Administered by Rest: Tc-99m 10.6 IV ENE Florian Sestamibi Stress:Tc-99m 32.9 IV ENE Hughes Sestamibi Rest: 18-Dec-2024 60 Discovery 630 Stress: 18-Dec-2024 30 Discovery 630 0.4mg Lexiscan. Images obtained in supine and prone position. SPECT RESULTS Technical Quality: Good Raw Data Analysis: Normal Image Corrections: No attenuation or motion correction applied Summed Stress Score: 0 Summed Rest Score: 6 Summed Difference Score: 0 PERFUSION FINDINGS Medium sized area of patchy decreased tracer uptake noted on the rest images in the mid anterior wall and large area of reduced tracer uptake noted in basal to distal inferior and inferoseptal wall on rest images which improved significantly over stress images suggestive of artifact. FUNCTIONAL RESULTS (calculated via Gated SPECT) Stress Image LV EF (%): 64 Stress EDV (mL):105 TID: 0.97 Stress ESV (mL):38 FUNCTIONAL FINDINGS: There is normal left ventricular systolic function. IMPRESSIONS Study is negative for ischemia low probability for obstructive coronary artery disease. EKG segment will be documented separately Fidelina Ulloa MD (Electronically Signed) Final Date: 18 December 2024 20:17 S
[2024-12-18 09:55] VITALS: BMI 20.5
[2024-12-18] MEDS: regadenoson 0.4 Mg/5 ml Syringe IVP (11:02)
[2024-12-18 11:19] VITALS: BP 134/76; PULSE 86
== END 2024-12-18 09:24 | disposition home or self-care (01) ==
PROVIDERS: PCP Family Medicine; Visit Provider Internal Medicine Interventional Cardiology
DX: R07.9 Chest pain, unspecified (principal); Z82.49 Family history of ischemic heart disease and other diseases of the circulatory system
CPT/HCPCS: 36415; 78452; 93017; 96374; A9500; J2785

== ENCOUNTER → 2024-12-19 08:32 | Outpatient (BNVA) | payer MEDICARE, OTHER, SELFPAY | PROVIDERS: PCP Family Medicine; Visit Provider Internal Medicine Medical Oncology | DX: E60 Dietary zinc deficiency (principal); D46.9 Myelodysplastic syndrome, unspecified; D69.6 Thrombocytopenia, unspecified | CPT/HCPCS: 80053; 83615; 85025 ==

== ENCOUNTER 2024-12-25 10:16 | Oncology outpatient (recurring) (ONCR) | payer MEDICARE, OTHER, SELFPAY | END 2025-01-15 23:59 | disposition home or self-care (01) | PROVIDERS: PCP Family Medicine; Visit Provider Internal Medicine Medical Oncology | DX: D46.9 Myelodysplastic syndrome, unspecified (principal) | CPT/HCPCS: 99214 ==

== ENCOUNTER 2025-02-06 09:01 | Outpatient (CLI) | payer MEDICARE, OTHER, SELFPAY ==
--- NOTE | 2025-02-06 09:09 | CT_ITS ---
WS: [id number] CTA THORACIC AORTA WITH AND WITHOUT CONTRAST HISTORY: ANEURYSM OF THE ASCENDING AORTA W/O RUPTURE/OTHER CHEST PAIN TECHNIQUE: CTA imaging of the thorax is performed with and without contrast. After noncontrast imaging is performed, CT angiogram is performed during injection of Omnipaque 350; 100 mL IV.. Sagittal and coronal reconstructions, sagittal and coronal MIP imaging is submitted. All CT scans at [facility] use at least one of these dose optimization techniques: automated exposure control; mA and/or kV adjustment per patient size (includes targeted exams where dose is matched to clinical indication); or iterative reconstruction. DLP: 361.66 mGy.cm COMPARISON: 04/11/2024 Dilated thoracic aortic aneurysm. Ascending aorta is dilated with a maximum diameter of 4.5 cm which is similar to 04/11/2024. Descending aorta at the level of the trachea is normal at 2.9 cm. Aorta remains dilated through the arch and then rapidly tapers. Great vessels arise normally with mild calcified plaque. No occlusions. Mildly ectatic descending thoracic aorta. Aortic root is not dilated. Lungs are clear. No pneumonia, mass or nodule. Mild cardiac enlargement. No RIGHT heart strain. No pericardial effusion. No mediastinal or hilar adenopathy. Normal pulmonary artery. No hepatic cyst. No adrenal mass. Incompletely visualized area of decreased attenuation in the uncinate process of the pancreas measures 11 mm. This was not definitely seen on the prior examination. This needs to be evaluated further. Pancreatic duct does not appear dilated. CT/CT angio chest [id number] IMPRESSION: 1. Stable ascending thoracic aortic aneurysm at 4.5 cm. Mild dilatation and to rtuosity through the arch. Normal descending caliber aorta. 2. Mild cardiomegaly. 3. Area of decreased attenuation in the pancreatic uncinate process is incompl etely visualized. Does not appear to been present on the prior study of 04/11/[address] or MRI with and without contrast imaging using pancr eatic mass protocol. Pancreatic neoplasm needs to be excluded.
[2025-02-06] MEDS: iohexol 350 mg/mL 500 mL Btl (per mL) IV (09:57)
== END 2025-02-06 09:02 | disposition home or self-care (01) ==
LOC: RAD 09:02
PROVIDERS: PCP Family Medicine; Visit Provider Nurse Practitioner Family
DX: I71.21 Aneurysm of the ascending aorta, without rupture (principal); R07.89 Other chest pain; I51.7 Cardiomegaly; R93.5 Abnormal findings on diagnostic imaging of other abdominal regions, including retroperitoneum
CPT/HCPCS: 71275

== ENCOUNTER 2025-03-08 09:48 | Outpatient (CLI) | payer MEDICARE, OTHER, SELFPAY ==
--- NOTE | 2025-03-08 11:00 | CTR_ITS ---
PROCEDURE INFORMATION: Exam: CT Chest With Contrast; Diagnostic Exam date and time: 03/08/2025 11:31 AM Age: 74 years old Clinical indication: Abnormal findings; Abnormal radiologic finding of the abdomen; Radiologic exam and body structure: Cta chest; Other: Abnormal radiologic exam of abdomen; Area of decreased attenuation in the pancreatic uncinate process is incompletely visualized. Does not appear to been present on the prior study of 04/11/2024. Recommend dedicated CT or mri with. And without contrast imaging using pancreatic mass protocol. Pancreatic neoplasm needs to be. Excluded. ; Additional info: Abnormal CT TECHNIQUE: Imaging protocol: Diagnostic computed tomography of the chest with contrast. Radiation optimization: All CT scans at this facility use at least one of these dose optimization techniques: automated exposure control; mA and/or kV adjustment per patient size (includes targeted exams where dose is matched to clinical indication); or iterative reconstruction. Contrast material: OMNI 350; Contrast volume: 100 ml; Contrast route: INTRAVENOUS (IV); COMPARISON: CT angio chest [id number] 02/06/2025 9:51 AM RADIATION DOSE METRICS: Total DLP (mGy-cm): 640.35 FINDINGS: Lungs: Unchanged small amount of scarring lower left lung. Otherwise, unremarkable. Pleural spaces: Unremarkable. No pneumothorax. No pleural effusion. Heart: Unremarkable. No cardiomegaly. No pericardial effusion. Coronary arteries: No calcification in the visualized coronary arteries. Lymph nodes: Unremarkable. No enlarged lymph nodes. Vasculature: Unchanged dilated aortic root measuring 4.5 cm in diameter at the level of the cusps. Unchanged fusiform aneurysm of the ascending thoracic aorta measuring 4.5 cm in diameter. Unchanged ectasia of the distal aortic arch measuring 3.5 cm in maximum diameter. Otherwise, unremarkable systemic thoracic vasculature. Bones/joints: Unchanged scoliosis and spondylosis. Otherwise, unremarkable. Soft tissues: Unremarkable visualized chest wall. Otherwise, unremarkable soft tissues. PROCEDURE INFORMATION: Exam: CT Abdomen And Pelvis With Contrast Exam date and time: 03/08/2025 11:31 AM Age: 74 years old Clinical indication: Abnormal findings; Abnormal radiologic finding of the abdomen; Radiologic exam and body structure: Cta chest; Other: Abnormal radiologic exam of abdomen; Area of decreased attenuation in the pancreatic uncinate process is incompletely visualized. Does not appear to been present on the prior study of 04/11/2024. Recommend dedicated CT or mri with. And without contrast imaging using pancreatic mass protocol. Pancreatic neoplasm needs to be. Excluded. ; Additional info: Abnormal CT TECHNIQUE: Imaging protocol: Computed tomography of the abdomen and pelvis with contrast. Radiation optimization: All CT scans at this facility use at least one of these dose optimization techniques: automated exposure control; mA and/or kV adjustment per patient size (includes targeted exams where dose is matched to clinical indication); or iterative reconstruction. Contrast material: OMNI 350; Contrast volume: 100 ml; Contrast route: INTRAVENOUS (IV); COMPARISON: CT angio chest [id number] 02/06/2025 9:51 AM RADIATION DOSE METRICS: Total DLP (mGy-cm): 640.35 FINDINGS: Lungs: See above report. Liver: Several small cysts in the liver remain unchanged, and need no follow-up. Otherwise, unremarkable. Gallbladder and biliary ducts: Normal. No calcified stones. No ductal dilation. Pancreas: The pancreas appears normal. The previously described 11 mm area in the uncinate process is the portal vein. Spleen: Normal. No splenomegaly. Adrenal glands: Normal. No mass. Kidneys and ureters: A few small renal cysts need no follow-up. Otherwise, unremarkable. Stomach and bowel: Unremarkable. No obstruction. No mucosal thickening. Appendix: No evidence of appendicitis. Intraperitoneal space: Unremarkable. No free air. No significant fluid collection. Vasculature: Unremarkable. Lymph nodes: Unremarkable. No enlarged lymph nodes. Urinary bladder: Distended urinary bladder suggests urinary retention. Otherwise, unremarkable urinary bladder. Reproductive: Unremarkable. Bones/joints: Moderate-severe scoliosis. Mild-severe multilevel spondylosis. Otherwise, unremarkable. Soft tissues: Unremarkable visualized body wall. Otherwise, unremarkable soft tissues. CT/CT chest abdpel w/*[id number] IMPRESSION: 1. Unchanged dilated aortic root measuring 4.5 cm in diameter at the level of the cusps. 2. Unchanged fusiform aneurysm of the ascending thoracic aorta measuring 4.5 cm in diameter. 3. Unchanged ectasia of the distal aortic arch measuring 3.5 cm in maximum diameter. 4. No other acute thoracic findings. 5. Additional details as above. Unchanged. IMPRESSION: 1. The pancreas appears normal. The previously described 11 mm area in the uncinate process is the portal vein. 2. Distended urinary bladder suggests urinary retention. 3. No other acute abdominal or pelvic findings. 4. Additional details as above.
[2025-03-08 11:26] LABS: Blood Urea Nitrogen 11 mg/dL (8-23)
[2025-03-08] MEDS: iohexol 350 mg/mL 500 mL Btl (per mL) PO (11:44)
[2025-03-08] MEDS: iohexol 350 mg/mL 500 mL Btl (per mL) IV (11:45)
== END 2025-03-08 09:49 | disposition home or self-care (01) ==
PROVIDERS: PCP Family Medicine; Visit Provider Internal Medicine Medical Oncology
DX: G43.009 Migraine without aura, not intractable, without status migrainosus (principal); D69.6 Thrombocytopenia, unspecified; I71.21 Aneurysm of the ascending aorta, without rupture; M41.9 Scoliosis, unspecified; M47.9 Spondylosis, unspecified; K76.89 Other specified diseases of liver
CPT/HCPCS: 71260; 74177; 82565; 84520

== ENCOUNTER → 2025-03-21 08:02 | Outpatient (BNVA) | payer MEDICARE, OTHER, SELFPAY | PROVIDERS: PCP Family Medicine; Visit Provider Internal Medicine Medical Oncology | DX: D69.6 Thrombocytopenia, unspecified (principal); D46.9 Myelodysplastic syndrome, unspecified | CPT/HCPCS: 80053; 85025 ==

== ENCOUNTER 2025-04-10 12:45 | Oncology outpatient (recurring) (ONCR) | payer MEDICARE, OTHER, SELFPAY ==
--- NOTE | 2025-04-10 12:45 | US_ITS ---
WS: [id number] URINARY BLADDER ULTRASOUND HISTORY: Distended bladder suggests urinary retention COMPARISON: None available. Urinary bladder is well distended. No intraluminal filling defect. No free fluid adjacent to the urinary bladder. Bladder Prevoid: 10.4 cm x 10.4 cm x 10.2 cm. Prevoid volume: 580.7 ml. Bladder Postvoid: 5.1 cm x 7.1 cm x 5.5 cm. Postvoid volume: 102.6 ml. US/US bladder [id number] IMPRESSION: 1. Normal distended urinary bladder. 2. Small residual post void volume.
== END 2025-04-16 23:59 | disposition home or self-care (01) ==
LOC: RAD 04-11 → ONCMED 04-11 09:31
PROVIDERS: PCP Family Medicine; Visit Provider Nurse Practitioner Family
DX: D46.9 Myelodysplastic syndrome, unspecified (principal); N32.89 Other specified disorders of bladder; R93.89 Abnormal findings on diagnostic imaging of other specified body structures; Z53.9 Procedure and treatment not carried out, unspecified reason
CPT/HCPCS: 76857; 99214

== ENCOUNTER 2025-05-31 10:08 | Outpatient (CLI) | payer MEDICARE, OTHER, SELFPAY ==
--- NOTE | 2025-05-31 10:00 | MM_ITS ---
WS: [id number] BILATERAL SCREENING DIGITAL TOMOSYNTHESIS MAMMOGRAM WITH CAD HISTORY: SCREENING COMPARISON: 05/30/2024, 05/14/2023 Bilateral CC and MLO views with tomosynthesis and synthetic mammography submitted. Computer aided detection analyzed. Breast composition: The breasts are heterogeneously dense, which may obscure small masses. No suspicious masses, microcalcifications or architectural distortion. MM/MM scr BI tomosynthesis [id number] IMPRESSION: BI-RADS: 2 - Benign FOLLOW UP: 1 Year Follow-up
== END 2025-05-31 10:09 | disposition home or self-care (01) ==
PROVIDERS: PCP Family Medicine; Visit Provider Family Medicine
DX: Z12.31 Encounter for screening mammogram for malignant neoplasm of breast (principal); R92.333 Mammographic heterogeneous density, bilateral breasts
CPT/HCPCS: 77063; 77067

== ENCOUNTER → 2025-06-21 08:03 | Outpatient (BNVA) | payer MEDICARE, OTHER, SELFPAY | PROVIDERS: PCP Family Medicine; Visit Provider Nurse Practitioner Family | DX: D46.9 Myelodysplastic syndrome, unspecified (principal) | CPT/HCPCS: 80053; 83615; 85025 ==

== ENCOUNTER 2025-06-26 11:19 | Oncology outpatient (recurring) (ONCR) | payer MEDICARE, OTHER, SELFPAY | END 2025-07-17 23:59 | disposition home or self-care (01) | PROVIDERS: PCP Family Medicine; Visit Provider Nurse Practitioner Family | DX: Z08 Encounter for follow-up examination after completed treatment for malignant neoplasm (principal); Z86.2 Personal history of diseases of the blood and blood-forming organs and certain disorders involving the immune mechanism; D69.6 Thrombocytopenia, unspecified; D70.9 Neutropenia, unspecified | CPT/HCPCS: 99213 ==

== ENCOUNTER → 2025-07-03 08:49 | Outpatient (BNVA) | payer MEDICARE, OTHER, SELFPAY | PROVIDERS: PCP Family Medicine; Visit Provider Clinical Nurse Specialist Adult Health | DX: N39.0 Urinary tract infection, site not specified (principal) | CPT/HCPCS: 81000; 87077; 87086; 87184 ==

== ENCOUNTER → 2025-09-05 11:42 | Outpatient (BNVA) | payer MEDICARE, OTHER, SELFPAY | PROVIDERS: PCP Family Medicine; Visit Provider Clinical Nurse Specialist Adult Health | DX: R30.0 Dysuria (principal); N30.00 Acute cystitis without hematuria | CPT/HCPCS: 81000; 87086 ==

== ENCOUNTER → 2025-09-20 08:18 | Outpatient (BNVA) | payer MEDICARE, OTHER, SELFPAY | PROVIDERS: PCP Family Medicine; Visit Provider Family Medicine | DX: G43.009 Migraine without aura, not intractable, without status migrainosus (principal); D69.6 Thrombocytopenia, unspecified | CPT/HCPCS: 80053; 82607; 82728; 82746; 83550; 85025 ==

== ENCOUNTER 2025-09-25 11:00 | Oncology outpatient (recurring) (ONCR) | payer MEDICARE, OTHER, SELFPAY | END 2025-10-17 23:59 | disposition home or self-care (01) | LOC: ONCMED 11:00 | PROVIDERS: PCP Family Medicine; Visit Provider Nurse Practitioner Family | DX: D46.9 Myelodysplastic syndrome, unspecified (principal); R03.0 Elevated blood-pressure reading, without diagnosis of hypertension | CPT/HCPCS: 99213 ==